=== PATIENT | female | born 1965 | race Caucasian/White ===

== ENCOUNTER 2018-03-18 13:31 | Inpatient (IN) | payer BC ==
[~2018-03-18] VITALS: Ht 162.6 cm; Wt 102.8 kg
[2018-05-04] VITALS (9 sets, daily range): BP systolic 113–143; BP diastolic 70–88; PULSE 75–96; TEMP 98.1–98.3
[2018-05-04] MEDS ORDERED: CEPHALEXIN500 M1 PO (08:12)
[2018-05-04] MEDS ORDERED: MOBIC 7.5MG7.5 MG PO (08:12)
[2018-05-04] MEDS ORDERED: TOPROL XL 25MG25 MG PO (08:13)
[2018-05-04] MEDS ORDERED: PRISTIQ100 MG PO (08:13)
[2018-05-04] MEDS ORDERED: PROBIOTIC ACID1 EAC3 PO (08:14)
[2018-05-04] MEDS ORDERED: NORCO 325 MG-51 TAB PO (08:15)
[2018-05-04] MEDS ORDERED: ATIVAN 0.50.5 MG/TAB PO (08:15)
[2018-05-04] MEDS ORDERED: LOPRESSOR 225 MG/TAB PO (19:50)
[2018-05-05 00:28] VITALS: BP 114/50; PULSE 90; TEMP 98.1
[2018-05-05 03:58] VITALS: BP 122/65; PULSE 76; TEMP 98
[2018-05-05 06:44] LABS: HEMATOCRIT 38.3 % (37.0-47.0); HEMOGLOBIN 12.9 g/dl (12.5-16.0)
[2018-05-05 07:44] VITALS: BP 118/69; PULSE 66; TEMP 98.4
[2018-05-05 12:19] VITALS: BP 131/93; PULSE 68; TEMP 98.7
[2018-05-05 16:26] VITALS: BP 141/70; PULSE 71; TEMP 97.7
[2018-05-05 20:15] VITALS: BP 155/78; PULSE 80; TEMP 98.6
[2018-05-06 00:10] VITALS: BP 139/64; PULSE 78; TEMP 98.1
[2018-05-06 03:34] VITALS: BP 135/67; PULSE 78; TEMP 98.3
[2018-05-06] MEDS ORDERED: NORCO 325 MG-7.1 TAB PO (07:50)
[2018-05-06] MEDS ORDERED: ROXICODONE 55 MG/TAB PO (07:50)
[2018-05-06 08:59] VITALS: BP 148/84; PULSE 72; TEMP 98.6
[2018-05-06 11:12] VITALS: BP 159/85; PULSE 70; TEMP 97.8
[2018-05-06] MEDS ORDERED: ASPIRIN 32325 MG/TAB PO (11:24)
== END 2018-05-06 14:15 | disposition home or self-care (01) | DRG 470 ==
LOC: JCC 04-26 16:45
PROVIDERS: Orthopaedic Surgery
PROC: 0SRC0J9 Replacement of Right Knee Joint with Synthetic Substitute, Cemented, Open Approach (ICD-10-PCS; principal; 2018-05-04 11:20)
DX: M17.11 Unilateral primary osteoarthritis, right knee (principal); I10 Essential (primary) hypertension
CPT/HCPCS: A4314; A9284; C1713; C1776; J0690; J2250; J2704; J2795; J3010; J7120

== ENCOUNTER → 2018-04-15 | Outpatient (CLI) | payer BC ==
[2018-04-15 11:46] LABS: HIV 1/2 Antibodies Non-Reactive; HIV-1p24 Antigen Non-Reactive
== END ==
LOC: COL.LAB 10:39
PROVIDERS: Orthopaedic Surgery
DX: Z01.812 Encounter for preprocedural laboratory examination (principal); M17.11 Unilateral primary osteoarthritis, right knee